=== PATIENT | female | born 1950 | race Asian ===

== ENCOUNTER 2019-01-18 18:35 | Emergency (ER) | payer SELFPAY ==
[~2019-01-18] VITALS: Wt 70.0 kg
--- NOTE | 2019-01-18 20:12 | ERD ---
ER Documentation Chief Complaint Chief Complaint burning w urine since 12pm today HPI 68-year-old female with no significant past medical history presenting to the emergency department complaints of intermittent dysuria which began yesterday evening. Symptoms are mild in severity. She reports associated suprapubic pain. She denies any fevers, back pain, abdominal pain, nausea, vomiting, or other symptoms at this time. She states she does have history of UTI, last one was approximately 2 months ago. ROS All systems reviewed and are negative except as per history of present illness. Medications Home Meds Active Scripts Phenazopyridine Hcl* (Pyridium*) 100 Mg Tab, 100 MG PO TID PRN for URINARY PAIN, #8 TAB Prov:MARIO BAZAN PA-C 01/18/19 Cephalexin* (Keflex*) 500 Mg Capsule, 500 MG PO TID for 7 Days, CAP Prov:MARIO BAZAN PA-C 01/18/19 Allergies Allergies: Coded Allergies: No Known Allergy (Unverified , 01/18/19) PMhx/Soc Medical and Surgical Hx: pt denies Medical Hx Hx Alcohol Use: No Hx Substance Use: No Hx Tobacco Use: No Smoking Status: Never smoker FmHx Family History: No diabetes Physical Exam Vitals Vital Signs Date Temp Pulse Resp B/P (MAP) Pulse Ox O2 O2 Flow FiO2 Time Delivery Rate 01/18/19 98.2 64 20 127/64 100 Room Air 20:45 (85) 01/18/19 98.6 70 18 134/70 97 18:39 (91) Physical Exam Const: No acute distress Head: Atraumatic Eyes: Normal Conjunctiva ENT: Normal External Ears, Nose and Mouth. Neck: Full range of motion. No meningismus. Resp: Clear to auscultation bilaterally Cardio: Regular rate and rhythm, no murmurs Abd: Soft, non tender, non distended. Normal bowel sounds. No rebound tenderness or guarding. No McBurney's point tenderness. No suprapubic tenderness to palpation. Skin: No petechiae or rashes Back: No midline or flank tenderness. No CVA tenderness. Ext: No cyanosis, or edema Neur: Awake and alert Psych: Normal Mood and Affect Results 24 hrs Laboratory Tests Test 01/18/19 20:17 Bedside Urine pH (LAB) 5.0 Bedside Urine Protein (LAB) Negative Bedside Urine Glucose (UA) Negative Bedside Urine Ketones (LAB) Negative Bedside Urine Blood Trace-intact Bedside Urine Nitrite (LAB) Negative Bedside Urine Leukocyte Esterase (L Trace Procedures/MDM 68-year-old female presenting to the emergency department with signs and symptoms most consistent with uncomplicated urinary tract infection. Vital signs are stable and she is nontoxic and well-appearing and she is stable for outpatient management with prescriptions. No evidence to suggest pyelonephritis, acute surgical abdomen, sepsis, or other emergencies. Patient was advised to follow-up with her primary care physician in the next 24 to 48 hours and return to the department immediately for any new or worsening or concerning symptoms. She was in agreement with the diagnosis, plan, need for follow-up, and return precautions. Departure Diagnosis: Primary Impression: Dysuria Condition: Fair Patient Instructions: Understanding Urinary Tract Infections (UTIs) Additional Instructions: Follow up with your PCP within the next 1-3 days for a repeat evaluation. If you require a referral to a specialist, your Primary Care Provider may be able to provide this for you. In most patient cases, a referral is not required. If you have further questions regarding this matter, please ask your Primary Care Provider. Return the the emergency department immediately if symptoms worsen or change. If you have any questions regarding medications, ask your pharmacist or us before you leave. If any adverse reactions, occur while taking your medications, discontinue the treatment and return to the emergency department immediately. If any new or worsening symptoms, uncontrolled fevers, or other unexplained symptoms occur, return to the emergency department immediately. Take your medications as directed, and complete the entire course of treatment. MARIO BAZAN PA-C January 18, 2019 20:12
[2019-01-18] MEDS ORDERED: PHEN-537 PO (20:39)
[2019-01-18] MEDS ORDERED: CEPH-443 PO (20:39)
[2019-01-18 20:45] VITALS: BP 127/64; PULSE 64; RESP 20
== END 2019-01-18 20:56 | disposition home or self-care (01) ==
LOC: FTE 18:35
DX: R30.0 Dysuria (principal)
CPT/HCPCS: 81003; 99283